=== PATIENT | female | born 1985 | race Asian ===

== ENCOUNTER 2022-10-02 09:04 | Day surgery (SDC) | payer MEDICAID ==
[~2022-10-02] VITALS: Ht 154.9 cm; Wt 50.0 kg
[2022-10-02] MEDS ORDERED: no meds (09:49)
[2022-10-02] MEDS ORDERED: LIDOcaine Viscous 15ml cup ONE (10:24)
[2022-10-02] MEDS ORDERED: fentaNYL/PF 50MCG/1 ML 2ML syringe ONE (10:24)
[2022-10-02] MEDS ORDERED: MIDAZolam 1 MG/ML 5ML VIAL ONE (10:24)
[2022-10-02 10:45] VITALS: BP 112/70; PULSE 69; RESP 12
[2022-10-02 11:06] VITALS: BP 116/74; PULSE 67; RESP 12; O2SAT 100
[2022-10-02 11:16] VITALS: BP 120/75; PULSE 90; RESP 16; O2SAT 99
[2022-10-02 11:26] VITALS: BP 118/66; PULSE 89; RESP 11; O2SAT 99
[2022-10-02 11:36] VITALS: BP 115/58; PULSE 75; RESP 14; O2SAT 100
== END 2022-10-02 11:45 | disposition home or self-care (01) ==
LOC: GI LAB 09:04
PROVIDERS: ATTEND Internal Medicine Gastroenterology
DX: R10.13 Epigastric pain (principal); R12 Heartburn; K29.00 Acute gastritis without bleeding; B96.81 Helicobacter pylori [H. pylori] as the cause of diseases classified elsewhere
CPT/HCPCS: 43239; J2250; J3010; J7030; Z7512; 99152; A4620